=== PATIENT | male | born 2000 | race Two or more races ===

== ENCOUNTER 2023-05-26 17:36 | Emergency (ER) | payer MEDICARE, SELFPAY ==
[2023-05-26 18:49] LABS: COVID-19 Antigen Negative (Negative)
--- NOTE | 2023-05-26 20:25 | ED.GENMED ---
History of Present Illness
General
Chief Complaint: Cold/Flu/URI Symptoms
Source: patient
Exam Limitations: none
Time Seen by Provider: 05/26/23 20:22
Travel History
Have you had any contact with someone who has COVID-19?: No
Do you have any symptoms of coronavirus? Fever > 100 degrees, chills, cough, shortness of breath, sore throat, loss of taste or smell, muscle aches, or headache?: Yes
Symptoms:: .
History of Present Illness
History of Present Illness:
22-year-old male [facility] from [facility] with fever at facility temperature of 100.1 runny nose cough and nasal congestion. There are other members in the house sick as well.
Phy Exam
Physical Exam
Physical Exam:
General: Well-appearing male nontoxic no acute respiratory distress
HEENT: Normocephalic atraumatic sclera slightly injected. Clear rhinorrhea noted nasal congestion noted
Heart: Regular rate and rhythm no murmurs
Lungs: Clear no wheeze or rales no cough throughout the exam
Extremities: No cyanosis
Skin: Warm no rash
Course
Orders/Labs/Results
Orders:
Orders
05/26/23 18:00
COVID-19 Antigen Urgent
Source: Nasal Swab
Influenza A+B Rapid Molecular Urgent
CYRUS Source: Nasal Swab
Specimen Description:
Vital Signs
Initial and Last Documented VS:
Initial Vital Signs
Pulse Resp
94 16
05/26/23 17:57 05/26/23 17:57
Last Documented Vital Signs
Pulse Resp
94 16
05/26/23 17:57 05/26/23 17:57
MDM/Problems Addressed
Differential Diagnosis Includes:
URI symptoms. Nontoxic no respiratory distress COVID and flu are negative. Patient semiuncooperative for vital signs. Temperature not obtained here however he looks and feels well. Suspect viral URI stable for discharge back to facility
*Critical Care Note
Total Time (30-74mins, 75-104mins- exclusive of procedures): Not Applicable
ED Attending Note
-
Portions of this chart may have been created with voice recognition software.� Occasional wrong word or��sound alike� substitutions may have occurred due to the inherent limitations of voice recognition software.
Discharge Plan
Departure
Patient Disposition: Home (Routine Discharge)
Date of Disposition: 05/26/23
Time of Disposition: 20:27
Patient with high blood pressure during this ER visit?: No
Discharge Problem:
URI (upper respiratory infection)
Instructions: Viral Upper Respiratory Infection, Adult (DC)
Referrals:
UNKNOWN - PT DOES,NOT KNOW [Family Provider] -
Activity Restrictions/Additional Instructions:
Encourage hydration. Administer Tylenol if needed for fever. Return if worse otherwise
Interventions
Interventions:
*Risk Screen - Suicide Last Done: 05/26/23 20:25
*General Assessment Last Done: 05/26/23 20:25
*Neglect/Abuse Screening Last Done: 05/26/23 20:25
ED- Fall Risk Assessment Last Done: 05/26/23 20:25
*ED COVID-19 Vaccine History Last Done: 05/26/23 20:25
ED- Pulmonary Assessment Last Done: 05/26/23 20:23
Discharge Date and Time
Print Language: SYRIAC
== END 2023-05-26 20:32 | disposition home or self-care (01) ==
LOC: EMR 17:36
PROVIDERS: Emergency Medicine; EMERGENCY PHYSICIAN Emergency Medicine
DX: J06.9 Acute upper respiratory infection, unspecified (principal)
CPT/HCPCS: 99283; 87502; 87811

== ENCOUNTER 2023-08-19 12:50 | Emergency (ER) | payer MEDICARE, SELFPAY ==
--- NOTE | 2023-08-19 13:52 | ED.GENMED ---
History of Present Illness
General
Chief Complaint: Seizure
Source: patient, family (Father) and patient care director
Exam Limitations: other (Severe autism)
Time Seen by Provider: 08/19/23 13:38
Nursing documentation reviewed up to this point in time: agreed with
History of Present Illness
History of Present Illness:
23-year-old male with a past medical history of autism, developmental delay, seizures who presents to the emergency room via EMS for evaluation after witnessed seizure. Patient is accompanied by staff from his long-term residency ([facility]) as well
as by his father. He cannot meaningfully participate in history due to severe autism. According to staff he was in his normal state of health and had a witnessed episode that lasted roughly 5 minutes where he locked up and had tonic-clonic
activity. He appears to have bitten his tongue. He was given 1 dose of intranasal midazolam 5 mg by staff. Seizure activity stopped, [facility]. He is sleepy but otherwise appears well on arrival here per father
and staff. His last seizure episode was roughly 5 years ago. He currently is on Briviact 200 mg twice daily; he follows with [facility] [place] [facility] (prescriber is VIELKA Palma). He was previously on Keppra as well but this was discontinued
about a year ago. He has been compliant with no missed doses of his medication. No recent illnesses, no other issues recently.
Review of Systems
Review of Systems
Unable to obtain full review of systems at this time due to: non-verbal
All Other Systems: Not applicable
Phy Exam
Physical Exam
Physical Exam:
General: Laying in bed eyes closed but opens his eyes upon my entering the room; nontoxic-appearing
Head: Normocephalic, atraumatic
Eyes: Conjunctiva normal, pupils 4 mm and reactive to light bilaterally
Throat: Airway intact, handling secretions, very minor abrasion to the right lateral tongue
Neck: Trachea midline, supple without meningismus
Lungs: Clear to auscultation bilaterally, no wheezing, rales, rhonchi; respiratory rate 18
Heart: Regular rate and rhythm, no murmurs, gallops, or rubs appreciated
Abd: Soft, non distended, no apparent tenderness
Neuro: Cranial nerves grossly intact, no gross motor or sensory deficits
Skin: no rash or signs of trauma
Extremities: Warm and well-perfused
Scores
Heart Failure Risk
Heart Failure Risk Score: Not Applicable
Heart Score for Chest Pain Patients
STEMI patient?: Not applicable
Withdrawal Assessment of Alcohol
Withdrawal Assessment Completed?: Not applicable
Course
Vital Signs
Pulse: 64
Resp Rate: 18
Initial and Last Documented VS:
Initial Vital Signs
Pulse Resp
64 18
08/19/23 13:52 08/19/23 13:52
Last Documented Vital Signs
Pulse Resp Pulse Ox
73 20 100
08/19/23 19:46 08/19/23 19:46 08/19/23 19:46
MDM/Problems Addressed
Differential Diagnosis Includes:
Breakthrough seizure
MDM/Problems Addressed:
23-year-old male with history of severe autism and intellectual delay, known seizure history who presents with his father as well as caregiver from his long-term care facility; presents for evaluation after witnessed seizure. Lasted roughly 5
minutes and resolved after intranasal midazolam. He did have minor trauma to the tongue. He is still somewhat sleepy (father says he is normally very active and will not sit still) but easily arousable and does not appear to have any focal
deficits on exam. He is quite agitated with attempt to approach him which is baseline according to father and caregiver. He will not cooperate with checking of blood pressure, temperature, oxygen saturation; he would allow for basic exam maneuvers
including manual check of his heart rate and respiratory rate. His history is consistent with seizure and he now likely has continued postictal period versus persistent effect from intranasal midazolam. I had a long discussion with the patient's
father�at this point after multiple attempts to check complete set of vital signs we have been unsuccessful and apparently this is a long-term issue for the patient and he typically requires sedation for any kind of medical maneuvers particularly
blood pressure check and blood draws. Spoke to the father about risks of sedation with medication versus holding off on aggressive testing and further attempts at vital signs in favor of continued monitoring here--while we were unable to get blood
pressure using cuff he has good strong pulses and brisk capillary refill consistent with good distal perfusion. Father preferred to hold off on sedation at this point in favor of watchful waiting. Will continue to monitor.
Patient awake and alert and back to baseline after ED observation. He is ambulatory, tolerating p.o. Father feels comfortable with discharge at this point I think this is a reasonable plan. Heart rate has remained stable, he did allow for pulse
oximetry testing which was normal. Still not allow for blood pressure testing on repeated attempts. Advised father to follow-up with neurologist and bring back with any concerns.
Chronic conditions affecting care:
Autism, epilepsy
*Pulse Oximetry
Patient hypoxic: no
*Critical Care Note
Total Time (30-74mins, 75-104mins- exclusive of procedures): Not Applicable
Data Reviewed
Source: records, ambulance crew and [facility]
Prescriptions/Medications Considered But Not Given:
Considered sedation with additional benzodiazepines or ketamine to facilitate blood draw and further assessment but after discussion with father will opt instead for watchful waiting rather than aggressive sedation and testing that is likely
unnecessary for breakthrough seizure
Further Testing Considered But Not Given:
Considered blood work as above
ED Attending Note
-
Portions of this chart may have been created with voice recognition software.� Occasional wrong word or��sound alike� substitutions may have occurred due to the inherent limitations of voice recognition software.
Discharge Plan
Departure
Patient Disposition: Home (Routine Discharge)
Date of Disposition: 08/19/23
Time of Disposition: 19:37
Patient with high blood pressure during this ER visit?: No
Discharge Problem:
Seizure
Instructions: Seizures, Adult (DC)
Prescriptions:
No Action
clonidine HCl 0.1 mg Tablet
0.1 mg PO HS
clonidine HCl 0.1 mg Tablet
0.05 mg PO DAILY
acetaminophen 325 mg Tablet
650 mg PO Q4HPRN PRN (Reason: mild pain)
loperamide 2 mg Capsule
2 mg PO Q4HPRN PRN (Reason: diarrhea)
cetirizine 10 mg Tablet
10 mg PO DAILY
dextromethorphan-guaifenesin [Chest Congestion Relief DM] 10-100 mg/5 mL Syrup
5 ml PO Q6HPRN PRN (Reason: cough)
magnesium hydroxide [Milk of Magnesia] 400 mg/5 mL Suspension
30 ml PO DAILYPRN PRN (Reason: constipation)
lorazepam 1 mg Tablet
1 mg PO DAILYPRN PRN (Reason: 1hr before medical appt/procedure)
Patient Comments:
08/19/23: take 1 hour before medical appointments, procedures, and lab draws
ibuprofen 600 mg Tablet
600 mg PO Q6HPRN PRN (Reason: mild pain)
fluticasone propionate 50 mcg/actuation [place],Suspension
1 spray INTRANASAL BID
risperidone 1 mg Tablet
1 mg PO QID
Triple Antibiotic 3.5-400-5,000 [id number] Ointment In Packet
1 applic TOPICAL DAILYPRN PRN (Reason: cuts/abrasions)
Aveeno Daily Moisturizing 1.25 % Lotion
1 ea TOPICAL DAILY
Briviact 100 mg Tablet
100 mg PO BID
Nayzilam 5 mg/spray (0.1 mL) [place],Non-Aerosol
1 spray INTRANASAL DAILYPRN PRN (Reason: seizure)
Patient Comments:
08/19/23: can repeat dose in opposite nostril after 10 minutes
Referrals:
Crys Laguerre CRNP [Specified Professional Personl] - Call in 1-3 days for appt
Graham Rodriguez DO [Family Provider] -
Activity Restrictions/Additional Instructions:
Thank you for visiting the Emergency Department at [facility].
1. Please schedule a follow up appointment as directed. Call first thing tomorrow morning to make an appointment.
2. If indicated, please take your medications as instructed and indicated on discharge paperwork.
3. If any of your symptoms do not improve, or persist, or become more severe within 6-12 hours, please return to the emergency department for further care.
4. Please return to the emergency department if you develop a headache, neck pain/stiffness, fever greater than 100.4F, chest pain, shortness of breath, persistent nausea, vomiting, slurred speech, difficulty walking, numbness/tingling, weakness,
signs of infection or any other symptoms that are worrisome to you.
Please call [phone] if you have any questions.
Interventions
Interventions:
*Risk Screen - Suicide Last Done: 08/19/23 12:56
*General Assessment Last Done: 08/19/23 12:56
*Neglect/Abuse Screening Last Done: 08/19/23 12:56
ED- Fall Risk Assessment Last Done: 08/19/23 19:50
*ED COVID-19 Vaccine History Last Done: 08/19/23 12:56
*Nursing Disposition Last Done: 08/19/23 19:46
ED- Cardiac Assessment Last Done: 08/19/23 12:57
ED- Neurological Assessment Last Done: 08/19/23 12:57
ED- Pulmonary Assessment Last Done: 08/19/23 12:57
Discharge Date and Time
Discharge Date/Time: 08/19/23 19:50
Print Language: KAZAKH
== END 2023-08-19 19:50 | disposition home or self-care (01) ==
LOC: EMR 12:50
PROVIDERS: EMERGENCY PHYSICIAN Emergency Medicine; FAMILY PHYSICIAN Internal Medicine
DX: G40.909 Epilepsy, unspecified, not intractable, without status epilepticus (principal); R45.1 Restlessness and agitation; F84.0 Autistic disorder; F32.A Depression, unspecified; Z79.899 Other long term (current) drug therapy
CPT/HCPCS: 99283

== ENCOUNTER 2024-03-02 21:11 | Emergency (ER) | payer MEDICARE, SELFPAY ==
--- NOTE | 2024-03-02 23:55 | ED.GENMED ---
History of Present Illness
General
Chief Complaint: Fever
Source: career based intervention coordinator
Exam Limitations: other (Autism)
Time Seen by Provider: 03/02/24 23:33
History of Present Illness
History of Present Illness:
This is a 23 year old male that is brought in by his care givers. States that he started with a fever today states that it would go up and down with the Tylenol. States that he was up to 102.7. States that he had Tylenol twice today. States that he
was not eating or drinking. Denies any nausea, vomiting, diarrhea.
Past History
Past History
ED Past Medical History: Seizures, Psychiatric (Depression) and Other (Autism, [place] as child)
ED Past Surgical History: None
Social History
Tobacco: Non-smoker
Alcohol: None
Personal: Single
Review of Systems
Review of Systems
Other source history: other (Care givers)
Constitutional: Reports fever; Denies chills
EENT: Reports no symptoms
Respiratory: Denies cough or trouble breathing
Cardiac: Reports no symptoms
ABD/GI: Reports no symptoms and abdominal pain; Denies nausea, vomiting or diarrhea
: Reports no symptoms
Musculoskeletal: Reports no symptoms
Skin: Reports no symptoms
Neurological: Reports no symptoms
Psychiatric: Reports no symptoms
Phy Exam
General Physical Exam
General Presentation: no apparent distress
General age: appears stated age
General Skin: warm and dry
General Habitus: normal
General Mental: usual mental status
General Hydration: other (Dry lips, Patient requested 'water')
ENT Exam
ENT Exam: TM's normal, pharynx normal and neck supple
Eye Exam
Eye Exam: EOMI
Cardiovascular Exam
Cardiovascular Exam: regular rate/rhythm and no murmur
Pulmonary Exam
Pulmonary Exam: lungs clear, no respiratory distress, no rales, chest non tender, no crackles, no rhonchi, no wheezing and no cough
Musculoskeletal Exam
Musculoskeletal Exam: full ROM
Skin Exam
Skin Exam: normal color, warm/dry, no rash and no petechia
Psychiatric Exam
Psychiatric Exam: other (Autusm. Few words like water and yes noted)
Course
Orders/Labs/Results
Orders:
Orders
03/02/24 23:58
COVID-19 Antigen Urgent
Source: Nasal Swab
Influenza A+B Rapid Molecular Urgent
CYRUS Source: Nasal Swab
Specimen Description:
Rapid Strep Group A Urgent
CYRUS Source: Throat/Pharynx
Specimen Description:
Date Specimen was Collected: 03/02/24
Time Specimen was Collected: 23:57
Negative for COVID and Rapid strep. Patient is positive for Influenza A.
Vital Signs
Initial and Last Documented VS:
Initial Vital Signs
Temp
97.9 F
03/02/24 23:51
Last Documented Vital Signs
Temp
97.9 F
03/02/24 23:51
MDM/Problems Addressed
Differential Diagnosis Includes:
COVID, Influenza, Rapid strep
MDM/Problems Addressed:
This is a 23 year old male that is brought in by his care givers. States that he started with a fever today. States that it goes up and down with Tylenol.
Will check for COVID, Influenza and Rapid strep.
Spoke with the Nurse on the phone. Explained that he has Influenza A. Will have them increased patient fluid intake daily. Will use Tylenol 1000mg every 6 hours for fever and alternate with Ibuprofen 600mg every 6 hours. Patient to follow up with
the family doctor. Return with any concerns.
Chronic conditions affecting care:
Autism
Acute Exacerbation and/or Progression of Chronic Illness:
Autism
*Pulse Oximetry
Patient hypoxic: not evaluated
*EKG
Interpreted by ED Provider?: NA
Rate: EKG- N/A
*Powder Worker Tnt Interpretation
Rate: Powder Worker Tnt- N/A
*Critical Care Note
Total Time (30-74mins, 75-104mins- exclusive of procedures): Not Applicable
ED Attending Note
-
Portions of this chart may have been created with voice recognition software.� Occasional wrong word or��sound alike� substitutions may have occurred due to the inherent limitations of voice recognition software.
Discharge Plan
Departure
Patient Disposition: Home (Routine Discharge)
Date of Disposition: 03/03/24
Time of Disposition: 00:47
Patient with high blood pressure during this ER visit?: No
Condition: Good
Covid-19: Negative COVID-19
Discharge Problem:
Influenza A
Instructions: Fever, Adult (DC), Flu in adults - Discharge instructions
Prescriptions:
No Action
clonidine HCl 0.1 mg Tablet
0.1 mg PO HS
clonidine HCl 0.1 mg Tablet
0.05 mg PO DAILY
acetaminophen 325 mg Tablet
650 mg PO Q4HPRN PRN (Reason: mild pain)
loperamide 2 mg Capsule
2 mg PO Q4HPRN PRN (Reason: diarrhea)
cetirizine 10 mg Tablet
10 mg PO DAILY
dextromethorphan-guaifenesin [Chest Congestion Relief DM] 10-100 mg/5 mL Syrup
5 ml PO Q6HPRN PRN (Reason: cough)
magnesium hydroxide [Milk of Magnesia] 400 mg/5 mL Suspension
30 ml PO DAILYPRN PRN (Reason: constipation)
lorazepam 1 mg Tablet
1 mg PO DAILYPRN PRN (Reason: 1hr before medical appt/procedure)
Patient Comments:
08/19/23: take 1 hour before medical appointments, procedures, and lab draws
ibuprofen 600 mg Tablet
600 mg PO Q6HPRN PRN (Reason: mild pain)
fluticasone propionate 50 mcg/actuation [place],Suspension
1 spray INTRANASAL BID
risperidone 1 mg Tablet
1 mg PO QID
Triple Antibiotic 3.5-400-5,000 [id number] Ointment In Packet
1 applic TOPICAL DAILYPRN PRN (Reason: cuts/abrasions)
Aveeno Daily Moisturizing 1.25 % Lotion
1 ea TOPICAL DAILY
Briviact 100 mg Tablet
100 mg PO BID
Nayzilam 5 mg/spray (0.1 mL) [place],Non-Aerosol
1 spray INTRANASAL DAILYPRN PRN (Reason: seizure)
Patient Comments:
08/19/23: can repeat dose in opposite nostril after 10 minutes
Referrals:
Graham Rodriguez, DO [Family Provider] - Call in 1-3 days for appt
Activity Restrictions/Additional Instructions:
As discussed, patient has influenza A. Please increase his water intake to 8-8oz glasses daily. You may use Tylenol 1000mg every 6 hours and alternate with Ibuprofen 600mg every 6 hours with food. So if the patient takes Tylenol at 9am he can have
Ibuprofen at 12 noon and then Tylenol at 3pm and Iburofen at 6pm. Follow up with the family doctor for recheck. IF YOU HAVE ANY OTHER CONCERNS PLEASE RETURN TO THE EMERGENCY ROOM.
Interventions
Interventions:
*Risk Screen - Suicide Last Done: 03/02/24 21:16
*General Assessment Last Done: 03/02/24 21:16
*Neglect/Abuse Screening Last Done: 03/02/24 21:16
*ED COVID-19 Vaccine History Last Done: 03/02/24 21:16
ED- Neurological Assessment Last Done: 03/03/24 00:05
ED-Skin Assessment Last Done: 03/03/24 00:05
Discharge Date and Time
Print Language: BRITISH
[2024-03-03 00:31] LABS: COVID-19 Antigen Negative (Negative)
[2024-03-03] MEDS: TYLENOL 1000 MG PO (00:52)
== END 2024-03-03 01:14 | disposition home or self-care (01) ==
LOC: EMR 21:11
PROVIDERS: Clinical Nurse Specialist Family Health; EMERGENCY PHYSICIAN Student in an Organized Health Care Education/Training Program; FAMILY PHYSICIAN Internal Medicine
DX: J10.1 Influenza due to other identified influenza virus with other respiratory manifestations (principal); Z11.52 Encounter for screening for COVID-19; F84.0 Autistic disorder; R56.9 Unspecified convulsions; F32.A Depression, unspecified
CPT/HCPCS: 99283; 87070; 87502; 87811; 87880